=== PATIENT | male | born 1945 | race Caucasian/White ===

== ENCOUNTER 2017-06-12 15:00 | Inpatient (IN) | payer OTHER, MEDICARE ==
[~2017-06-12] VITALS: Ht 175.3 cm; Wt 103.7 kg
[~2017-06-12 15:00] MED LIST: ALBU17I INH; AMLO5 PO; ASPI81TA82 PO; ATOR40TA49 PO; AZIT250T43 PO; CARV12.5 PO; CEFU1TAB43 PO; Z.0.OXYGENDME NC
[2017-06-12 15:02] VITALS: BP 132/60; PULSE 82; RESP 16; TEMP 98; O2SAT 98
[2017-06-12] MEDS ORDERED: PANTOPRAZOLE SODIUM 40 MG VIAL IVP ONE (15:30)
[2017-06-12] MEDS ORDERED: SODIUM CHLOR 0.9% 1000 ML INJ 1,000 ML IV ONE (15:30)
[2017-06-12] MEDS ORDERED: SODIUM CHLORIDE 0.9% FLUSH 10 ML FLUSH IVF PRN (15:30)
--- NOTE | 2017-06-12 15:31 | PD ---
HPI Chief Complaint: Bleeding Time Seen by Provider: 15:29 Travel History International Travel<30 days: No Contact w/Intl Traveler<30days: No Traveled to known affect area: No History of Present Illness HPI 72-year-old male patient with history of hypertension, CHF, presents to the ER today because he states that he had a syncopal episode while on the toilet today. He states that he saw that his bowel movements was consisting of dark blood. He has been lightheaded but denies any chest pains, shortness of breath , fevers, vomiting, abdominal pains, or any other symptoms. He denies being on any blood thinners. He was seen by his physician and told to come in because his initial systolic blood pressure was 80. 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) Cardiac Catheterization: Yes Cardiovascular Problems: Yes High Cholesterol: Yes Chemotherapy: No Chest Pain: No Congestive Heart Failure: Yes COPD: No Cerebrovascular Accident: No Diabetes: No Diminished Hearing: No Endocrine: No Gastrointestinal Disorders: No GERD: No Genitourinary: Yes Headaches: No Hiatal Hernia: No Hypertension: Yes Immune Disorder: No Implanted Vascular Access Dvce: No Kidney Stones: No Musculoskeletal: No Neurologic: No Psychiatric: No Reproductive: No Respiratory: Yes Migraines: No Radiation Therapy: No Renal Failure: No Seizures: No Sickle Cell Disease: No Sleep Apnea: No Thyroid Disease: No Ulcer: No Past Surgical History Abdominal Surgery: No AICD: No Arteriovenous Shunt: No Cardiac Surgery: No Ear Surgery: No Endocrine Surgery: No Eye Surgery: No Genitourinary Surgery: No Gynecologic Surgery: No Insulin Pump: No Joint Replacement: No Neurologic Surgery: No Oral Surgery: No Pacemaker: No Thoracic Surgery: No Other Surgery: Yes (LEFT UPPER EXTREMITY SKIN CA REMOVED) Social History Alcohol Use: Yes (OCCASIONAL) Tobacco Use: No (QUIT IN MAY ) Substance Use: No Allergies-Medications (Allergen,Severity, Reaction): Coded Allergies: No Known Allergies (Unverified , 06/12/17) Reported Meds & Prescriptions Reported Meds & Active Scripts Active Reported Sodium Bicarbonate 650 Mg Tab 650 Mg PO BIDPC Furosemide 40 Mg Tab 40 Mg PO DAILY PRN Dicyclomine (Dicyclomine HCl) 10 Mg Cap 20 Mg PO TID PRN Carvedilol 12.5 Mg Tab 12.5 Mg PO BID Atorvastatin (Atorvastatin Calcium) 40 Mg Tab 40 Mg PO HS Aspirin 81 Mg Chew 81 Mg CHEW DAILY Amlodipine (Amlodipine Besylate) 10 Mg Tab 10 Mg PO DAILY Review of Systems Except as stated in HPI: all other systems reviewed are Neg Physical Exam Narrative GENERAL: Well-developed elderly white male patient currently in mild distress. Awake and oriented 3. SKIN: Focused skin assessment warm/dry. HEAD: Atraumatic. Normocephalic. EYES: Pupils equal and round. No scleral icterus. No injection or drainage. Pale conjunctiva. ENT: No nasal bleeding or discharge. Mucous membranes pink and moist. NECK: Trachea midline. No JVD. CARDIOVASCULAR: Regular rate and rhythm. No murmur appreciated. RESPIRATORY: No accessory muscle use. Clear to auscultation. Breath sounds equal bilaterally. GASTROINTESTINAL: Abdomen soft, non-tender, nondistended. Hepatic and splenic margins not palpable. RECTAL EXAM: No masses or tenderness, stool is dark maroon, Hemoccult-positive. MUSCULOSKELETAL: No obvious deformities. No clubbing. No cyanosis. No edema. NEUROLOGICAL: Awake and alert. No obvious cranial nerve deficits. Motor grossly within normal limits. Normal speech. PSYCHIATRIC: Appropriate mood and affect; insight and judgment normal. Data Data Last Documented VS Vital Signs Date Time Temp Pulse Resp B/P (MAP) Pulse Ox O2 Delivery O2 Flow Rate FiO2 06/12/17 16:08 75 18 135/70 (91) 97 Room Air 06/12/17 15:02 98.0 Orders Orders Complete Blood Count With Diff (06/12/17 15:23) Comprehensive Metabolic Panel (06/12/17 15:23) Lipase (06/12/17 15:23) Prothrombin Time / Inr (Pt) (06/12/17 15:23) Act Partial Throm Time (Ptt) (06/12/17 15:23) Type And Screen (06/12/17 15:23) Ecg Monitoring (06/12/17 15:23) Iv Access Insert/Monitor (06/12/17 15:23) Oximetry (06/12/17 15:23) Pantoprazole Inj (Protonix Inj) (06/12/17 15:30) Sodium Chloride 0.9% Flush (Ns Flush) (06/12/17 15:30) Sodium Chlor 0.9% 1000 Ml Inj (Ns 1000 M (06/12/17 15:30) Sodium Chlorid 0.9% 500 Ml Inj (Ns 500 M (06/12/17 15:45) Admit Order (Ed Use Only) (06/12/17 16:30) Labs Laboratory Tests Test 06/12/17 14:31 White Blood Count 11.4 TH/MM3 Red Blood Count 3.56 MIL/MM3 Hemoglobin 11.2 GM/DL Hematocrit 33.3 % Mean Corpuscular Volume 93.3 FL Mean Corpuscular Hemoglobin 31.4 PG Mean Corpuscular Hemoglobin Concent 33.6 % Red Cell Distribution Width 13.0 % Platelet Count 258 TH/MM3 Mean Platelet Volume 8.3 FL Neutrophils (%) (Auto) 72.2 % Lymphocytes (%) (Auto) 21.5 % Monocytes (%) (Auto) 5.9 % Eosinophils (%) (Auto) 0.2 % Basophils (%) (Auto) 0.2 % Neutrophils # (Auto) 8.2 TH/MM3 Lymphocytes # (Auto) 2.4 TH/MM3 Monocytes # (Auto) 0.7 TH/MM3 Eosinophils # (Auto) 0.0 TH/MM3 Basophils # (Auto) 0.0 TH/MM3 CBC Comment DIFF FINAL Differential Comment Prothrombin Time 11.3 SEC Prothromb Time International Ratio 1.0 RATIO Activated Partial Thromboplast Time 22.9 SEC Blood Urea Nitrogen 71 MG/DL Creatinine 1.92 MG/DL Random Glucose 120 MG/DL Total Protein 6.9 GM/DL Albumin 3.5 GM/DL Calcium Level 9.4 MG/DL Alkaline Phosphatase 101 U/L Aspartate Amino Transf (AST/SGOT) 11 U/L Alanine Aminotransferase (ALT/SGPT) 19 U/L Total Bilirubin 0.5 MG/DL Sodium Level 136 MEQ/L Potassium Level 4.6 MEQ/L Chloride Level 107 MEQ/L Carbon Dioxide Level 19.1 MEQ/L Anion Gap 10 MEQ/L Estimat Glomerular Filtration Rate 35 ML/MIN Lipase 146 U/L MDM Medical Decision Making Medical Screen Exam Complete: Yes Emergency Medical Condition: Yes Medical Record Reviewed: Yes Interpretation(s) EKG shows sinus rhythm at a rate of 76 bpm with a left bundle branch block pattern. No signs of acute ST-T changes. Laboratory Tests Test 06/12/17 14:31 White Blood Count 11.4 TH/MM3 (4.0-11.0) Red Blood Count 3.56 MIL/MM3 (4.50-5.90) Hemoglobin 11.2 GM/DL (13.0-17.0) Hematocrit 33.3 % (39.0-51.0) Neutrophils (%) (Auto) 72.2 % (16.0-70.0) Neutrophils # (Auto) 8.2 TH/MM3 (1.8-7.7) Activated Partial Thromboplast Time 22.9 SEC (24.3-30.1) Blood Urea Nitrogen 71 MG/DL (7-18) Creatinine 1.92 MG/DL (0.60-1.30) Random Glucose 120 MG/DL (74-106) Aspartate Amino Transf (AST/SGOT) 11 U/L (15-37) Carbon Dioxide Level 19.1 MEQ/L (21.0-32.0) Estimat Glomerular Filtration Rate 35 ML/MIN (>89) Differential Diagnosis GI bleed/syncope: Evaluate for anemia versus metabolic issues versus sepsis versus dysrhythmias Narrative Course Patient was given IV fluids in the ER. H&H appears to be stable and vital signs are stable in the ER. He has melena with Hemoccult positive stools. At this point, patient was given Protonix and my plan would be to admit the patient for further GI workup. Case is discussed with Dr. De La Torre for admission. HemaPrompt Point of Care Internal Pos. & Neg. Controls: Passed Fecal Specimen Occult Blood: Positive Diagnosis Primary Impression: Syncope Additional Impression: GI bleed Admitting Information Admitting Physician Requests: it Mary Arizmendi MD Jun 12, 2017 15:31
[2017-06-12] MEDS ORDERED: ATOR40TA16 PO (15:34)
[2017-06-12] MEDS ORDERED: CARV12.52 PO (15:34)
[2017-06-12] MEDS ORDERED: AMLO10TA2 PO (15:34)
[2017-06-12] MEDS ORDERED: ASPI81CH CHEW (15:34)
[2017-06-12] MEDS ORDERED: DICY10CA12 PO (15:39)
[2017-06-12] MEDS ORDERED: FURO40TA PO (15:39)
[2017-06-12] MEDS ORDERED: SODI650T PO (15:39)
[2017-06-12] MEDS ORDERED: SODIUM CHLORID 0.9% 500 ML INJ 500 ML IV ONE (15:45)
[2017-06-12 15:46] VITALS: O2SAT 98
[2017-06-12 15:56] LABS: AUTOMATED NEUTROPHIL # 8.2 TH/MM3 (1.8-7.7); BASOPHIL % 0.2 % (0.0-2.0); EOSINOPHIL % 0.2 % (0.0-4.0); HEMATOCRIT 33.3 % (39.0-51.0); HEMO FLAGS DIFF FINAL; LYMPH % 21.5 % (9.0-44.0); LYMPHOCYTE # 2.4 TH/MM3 (1.0-4.8); MEAN CELL VOLUME 93.3 FL (80.0-100.0); MEAN CORPUSCULAR HEMOGLOBIN 31.4 PG (27.0-34.0); MEAN CORPUSCULAR HGB CONC 33.6 % (32.0-36.0); MONO % 5.9 % (0.0-8.0); NEUT % 72.2 % (16.0-70.0); PLATELET COUNT 258 TH/MM3 (150-450); RED BLOOD COUNT 3.56 MIL/MM3 (4.50-5.90); WHITE BLOOD COUNT 11.4 TH/MM3 (4.0-11.0)
[2017-06-12 16:08] VITALS: BP 135/70; PULSE 75; RESP 18; O2SAT 97
[2017-06-12 16:20] LABS: ANION GAP 10 MEQ/L (5-15); AST (GOT) 11 U/L (15-37); BICARBONATE 19.1 MEQ/L (21.0-32.0); BLOOD UREA NITROGEN 71 MG/DL (7-18); CHLORIDE 107 MEQ/L (98-107); GLOMERULAR FILTRATION RATE 35 ML/MIN (>89); POTASSIUM 4.6 MEQ/L (3.5-5.1); SODIUM (NA) 136 MEQ/L (136-145)
[2017-06-12 16:22] LABS: ALT (GPT) 19 U/L (12-78)
[2017-06-12 16:24] LABS: ALKALINE PHOSPHATASE 101 U/L (45-117); APTT (PATIENT) 22.9 SEC (24.3-30.1); PROTHROMBIN TIME - PATIENT 11.3 SEC (9.8-11.6); TOTAL BILIRUBIN ADULT 0.5 MG/DL (0.2-1.0)
[2017-06-12] MEDS ORDERED: SENNOSIDES 8.6 MG TAB PO PRN (16:45)
[2017-06-12] MEDS ORDERED: LACTULOSE SYRUP 20 GM/30 ML CUP PO PRN (16:45)
[2017-06-12] MEDS ORDERED: SODIUM CHLORIDE 0.9% FLUSH 10 ML FLUSH IV FLUSH PRN (16:45)
[2017-06-12] MEDS ORDERED: NALOXONE HCL 0.4 MG/ML AMP IV PUSH PRN (16:45)
[2017-06-12] MEDS: PANTOPRAZOLE SODIUM 40 MG VIAL IV PUSH SCH (16:45)
[2017-06-12] MEDS ORDERED: ACETAMINOPHEN 325 MG TAB PO PRN (16:45)
[2017-06-12] MEDS ORDERED: BISACODYL 10 MG SUPP RECTAL PRN (16:45)
[2017-06-12] MEDS ORDERED: MAGNESIUM HYDROXIDE SUSP 30 ML CUP PO PRN (16:45)
--- NOTE | 2017-06-12 16:53 | HHI.HP ---
[facility] Admission Diagnosis GI bleed/syncope Diagnoses: Chief Complaint: Syncope, rectal bleeding Travel History International Travel<30 Days: No Contact w/Intl Traveler <30 Da: No Traveled to Known Affected Are: No History of Present Illness Written by Slim Julian, acting as scribe for Dr. De La Torre on 06/12/17 at 16:52. 72-year-old male with a past mental history of HTN, HLD, CKD, CAD who was sent by his PCP after a syncopal episode and rectal bleeding. The patient woke up this morning around 4 AM with sweating and nausea. He went to the bathroom, lost consciousness for an unknown period of time, and woke up on the floor. He had some dried blood on his nose. He states that he was still having some sweating and clamminess, but went back to bed. He woke up around 7 AM and still felt pretty dizzy. He went to the bathroom, had an episode of diarrhea, and noticed the toilet water was full of dark blood. He denies any prior episodes like this in the past. He's never had a colonoscopy. He called his PCP who is able to get him in for an appointment today. He felt quite lightheaded especially with ambulation on the way to see his PCP. When he got there they found that his systolic blood pressure was in the 80s and he was recommended to go to the ED. He did take his blood pressure medications this morning. His blood pressure did well respond to fluids in the ED. Lightheadedness seems to have improved now that his blood pressure is better. He was found to be Hemoccult positive in the ED. 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 Neck surgery for bulging disc Reported Medications Reported Meds & Active Scripts Active Reported Sodium Bicarbonate 650 Mg Tab 650 Mg PO BIDPC Furosemide 40 Mg Tab 40 Mg PO DAILY PRN Dicyclomine (Dicyclomine HCl) 10 Mg Cap 20 Mg PO TID PRN Carvedilol 12.5 Mg Tab 12.5 Mg PO BID Atorvastatin (Atorvastatin Calcium) 40 Mg Tab 40 Mg PO HS Aspirin 81 Mg Chew 81 Mg CHEW DAILY Amlodipine (Amlodipine Besylate) 10 Mg Tab 10 Mg PO DAILY Allergies: Coded Allergies: No Known Allergies (Unverified , 06/12/17) Active Ordered Medications Current Medications Medications (Trade) Dose Ordered Sig/Dorothy Route Start Time Stop Time Status Last Admin (NS Flush) 2 ml UNSCH PRN IVF 06/12/17 15:30 Sodium Chloride 1,000 ml @ 100 mls/hr Q10H IV 06/12/17 16:31 (NS Flush) 2 ml UNSCH PRN IV FLUSH 06/12/17 16:45 (NS Flush) 2 ml BID IV FLUSH 06/12/17 21:00 (Tylenol) 650 mg Q4H PRN PO 06/12/17 16:45 (Narcan Inj) 0.4 mg UNSCH PRN IV PUSH 06/12/17 16:45 UNV (Eliza-Colace) 1 tab BID PO 06/12/17 21:00 UNV (Milk Of Magnesia Liq) 30 ml Q12H PRN PO 06/12/17 16:45 UNV (Senokot) 17.2 mg Q12H PRN PO 06/12/17 16:45 UNV (Dulcolax Supp) 10 mg DAILY PRN RECTAL 06/12/17 16:45 UNV (Lactulose Liq) 30 ml DAILY PRN PO 06/12/17 16:45 UNV (Protonix Inj) 40 mg Q12H IV PUSH 06/12/17 16:45 UNV Family History Mother of hepatitis Father from perforated stomach ulcer at age 72 Social History Quit smoking 2 years ago Rare social alcohol use Denies drug use Physical Exam Vital Signs Vital Signs Date Time Temp Pulse Resp B/P (MAP) Pulse Ox O2 Delivery O2 Flow Rate FiO2 06/12/17 16:08 75 18 135/70 (91) 97 Room Air 06/12/17 15:46 98 Room Air 06/12/17 15:31 97 Room Air 06/12/17 15:02 98.0 82 16 132/60 (84) 98 Room Air Physical Exam GENERAL: Well-developed well-nourished. In no acute distress. SKIN: Warm and dry. Well-healed previous skin graft scar on left arm. HEENT: Normocephalic. Pupils equal and round. Mucous membranes pink and moist. CARDIOVASCULAR: Regular rate and rhythm. No murmur appreciated. RESPIRATORY: No accessory muscle use. Clear to auscultation. Breath sounds equal bilaterally. GASTROINTESTINAL: Abdomen soft, non-tender, nondistended. Bowel sounds x4. MUSCULOSKELETAL: No obvious deformities. No clubbing or cyanosis. No edema. NEUROLOGICAL: Awake and alert. Cranial nerves II through XII intact. Motor and sensory grossly within normal limits. 5/5 muscle strength in all muscle groups. Normal speech. PSYCHIATRIC: Appropriate mood and affect; insight and judgment normal. Laboratory Laboratory Tests Test 06/12/17 14:31 White Blood Count 11.4 Red Blood Count 3.56 Hemoglobin 11.2 Hematocrit 33.3 Mean Corpuscular Volume 93.3 Mean Corpuscular Hemoglobin 31.4 Mean Corpuscular Hemoglobin Concent 33.6 Red Cell Distribution Width 13.0 Platelet Count 258 Mean Platelet Volume 8.3 Neutrophils (%) (Auto) 72.2 Lymphocytes (%) (Auto) 21.5 Monocytes (%) (Auto) 5.9 Eosinophils (%) (Auto) 0.2 Basophils (%) (Auto) 0.2 Neutrophils # (Auto) 8.2 Lymphocytes # (Auto) 2.4 Monocytes # (Auto) 0.7 Eosinophils # (Auto) 0.0 Basophils # (Auto) 0.0 CBC Comment DIFF FINAL Differential Comment Prothrombin Time 11.3 Prothromb Time International Ratio 1.0 Activated Partial Thromboplast Time 22.9 Blood Urea Nitrogen 71 Creatinine 1.92 Random Glucose 120 Total Protein 6.9 Albumin 3.5 Calcium Level 9.4 Alkaline Phosphatase 101 Aspartate Amino Transf (AST/SGOT) 11 Alanine Aminotransferase (ALT/SGPT) 19 Total Bilirubin 0.5 Sodium Level 136 Potassium Level 4.6 Chloride Level 107 Carbon Dioxide Level 19.1 Anion Gap 10 Estimat Glomerular Filtration Rate 35 Lipase 146 Result Diagram: 06/12/17 1431 06/12/17 1431 Caprini VTE Risk Assessment Caprini VTE Risk Assessment: Mod/High Risk (score >= 2) VTE Pharm Contraindication: Active bleeding Caprini Risk Assessment Model Point Value = 1 Point Value = 2 Point Value = 3 Point Value = 5 Age 41-60 Minor surgery BMI > 25 kg/m2 Swollen legs Varicose veins or History of unexplained or recurrent spontaneous Oral contraceptives or hormone replacement Sepsis (< 1 month) Serious lung disease, including pneumonia (< 1 month) Abnormal pulmonary function Acute myocardial infarction Congestive heart failure (< 1 month) History of inflammatory bowel disease Medical patient at bed rest Age 61-74 Arthroscopic surgery Major open surgery (> 45 min) Laparoscopic surgery (> 45 min) Malignancy Confined to bed (> 72 hours) Immobilizing plaster cast Central venous access Age >= 75 History of VTE Family history of VTE Factor V Leiden Prothrombin [id number] Lupus anticoagulant Anticardiolipin antibodies Elevated serum homocysteine Heparin-induced thrombocytopenia Other congenital or acquired thrombophilia Stroke (< 1 month) Elective arthroplasty Hip, pelvis, or leg fracture Acute spinal cord injury (< 1 month) Prophylaxis Regimen Total Risk Factor Score Risk Level Prophylaxis Regimen 0-1 Low Early ambulation 2 Moderate Order ONE of the following: *Sequential Compression Device (SCD) *Heparin 5000 units SQ BID 3-4 Higher Order ONE of the following medications: *Heparin 5000 units SQ TID *Enoxaparin/Lovenox 40 mg SQ daily (WT < 150 kg, CrCl > 30 mL/min) *Enoxaparin/Lovenox 30 mg SQ daily (WT < 150 kg, CrCl > 10-29 mL/min) *Enoxaparin/Lovenox 30 mg SQ BID (WT < 150 kg, CrCl > 30 mL/min) AND/OR *Sequential Compression Device (SCD) 5 or more Highest Order ONE of the following medications: *Heparin 5000 units SQ TID (Preferred with Epidurals) *Enoxaparin/Lovenox 40 mg SQ daily (WT < 150 kg, CrCl > 30 mL/min) *Enoxaparin/Lovenox 30 mg SQ daily (WT < 150 kg, CrCl > 10-29 mL/min) *Enoxaparin/Lovenox 30 mg SQ BID (WT < 150 kg, CrCl > 30 mL/min) AND *Sequential Compression Device (SCD) Assessment and Plan Assessment and Plan 72-year-old male with a past mental history of HTN, HLD, CKD, CAD who was sent by his PCP after a syncopal episode and rectal bleeding Syncope: Patient with lightheadedness and dizziness worse with position changes associated with low blood pressure and hypovolemia from bleeding and diarrhea. Symptoms seem to be improving with improvement in BP after fluids. -Hold home blood pressure medications at this time and check orthostatic blood pressures -Check EKG and monitor on telemetry -IVF GI bleeding: Episode of rectal bleeding 1. Hemoglobin 11.2, previously 10.8 on 04/09/16. Currently stable. -Monitor H&H and transfuse if indicated -Consult gastroenterology -IV PPI twice daily DELISA on Chronic kidney disease stage III: Creatinine 1.92, previously 1.64 on . Bicarbonate level is decreased on home bicarbonate replacement. -IVF and follow-up BMP -Continue home bicarbonate replacement History of CAD: -Hold aspirin with GI bleeding as above -Hold carvedilol and amlodipine with hypotension as above -Continue statin DVT prophylaxis: SCDs. Chemical prophylaxis contraindicated with bleeding. This note was transcribed by MUNA Eason . I, Dr. Paz De La Torre personally performed the history, physical exam, and medical decision making; and confirmed the accuracy of the information in the transcribed note. Authenticated by Dr. Paz De La Torre on 06/12/17 at 16:52. Discussed Condition With Patient, ED staff Slim Julian Jun 12, 2017 16:53 Paz De La Torre MD Jun 12, 2017 18:44
[2017-06-12 17:05] VITALS: BP 156/73; PULSE 68; RESP 19; O2SAT 97
[2017-06-12] MEDS: SODIUM CHLOR 0.9% 1000 ML INJ 1,000 ML IV SCH (17:19)
[2017-06-12 18:00] VITALS: BP 161/69; PULSE 85; RESP 20; TEMP 97.6; O2SAT 97
[2017-06-12] MEDS: SODIUM BICARBONATE 650 MG TAB PO SCH (18:00)
[2017-06-12 20:00] VITALS: BP 164/70; PULSE 78; RESP 20; TEMP 98.6; O2SAT 98
[2017-06-12] MEDS ORDERED: PEG (High)/E-LYTE SOLN 4000 ML BTL PO ONE (20:00)
[2017-06-12] MEDS: SODIUM CHLORIDE 0.9% FLUSH 10 ML FLUSH IV FLUSH SCH (21:19)
[2017-06-12] MEDS: DOCUSATE SODIUM 50 MG/SENNA 8.6 MG TAB PO SCH (21:20)
[2017-06-12] MEDS: ATORVASTATIN 40 MG TAB PO SCH (21:20)
[2017-06-12 21:54] LABS: HEMATOCRIT 27.5 % (39.0-51.0); REVIEW FLAG FINAL
[2017-06-13] VITALS (8 sets, daily range): BP systolic 140–184; BP diastolic 66–84; PULSE 76–95; RESP 18–20; TEMP 97.5–98.4; O2SAT 90–99
[2017-06-13] MEDS: PANTOPRAZOLE SODIUM 40 MG VIAL IV PUSH SCH ×2 (04:19→17:35)
[2017-06-13] MEDS: SODIUM CHLOR 0.9% 1000 ML INJ 1,000 ML IV SCH ×2 (04:19→17:35)
[2017-06-13] MEDS ORDERED: LACTATED RINGER'S 1000 ML IV PRN (05:15)
[2017-06-13] MEDS ORDERED: SODIUM CHLORID 0.9% 500 ML IV PRN (05:15)
[2017-06-13] MEDS ORDERED: POVIDONE IODINE 5% (ANTISEPSIS KIT) 4 APPLICATIONS EACH NARE PRN (05:15)
[2017-06-13] MEDS ORDERED: METOPROLOL TARTRATE 25 MG TAB PO PRN (05:15)
[2017-06-13] MEDS ORDERED: CHLORHEXIDINE GLUCONATE 2 % 1 PACK (2 CLOTHS) TOPICAL PRN (05:15)
[2017-06-13] MEDS ORDERED: INSULIN HUMAN REGULAR 1,000 UNITS/10 ML VIAL SQ PRN (05:15)
[2017-06-13 05:52] LABS: AUTOMATED NEUTROPHIL # 6.3 TH/MM3 (1.8-7.7); BASOPHIL % 0.4 % (0.0-2.0); EOSINOPHIL # 0.4 TH/MM3 (0-0.4); EOSINOPHIL % 4.1 % (0.0-4.0); HEMATOCRIT 25.9 % (39.0-51.0); HEMO FLAGS DIFF FINAL; LYMPH % 27.9 % (9.0-44.0); LYMPHOCYTE # 2.9 TH/MM3 (1.0-4.8); MEAN CELL VOLUME 94.2 FL (80.0-100.0); MEAN CORPUSCULAR HEMOGLOBIN 32.7 PG (27.0-34.0); MEAN CORPUSCULAR HGB CONC 34.7 % (32.0-36.0); MONO % 6.2 % (0.0-8.0); NEUT % 61.4 % (16.0-70.0); PLATELET COUNT 195 TH/MM3 (150-450); RED BLOOD COUNT 2.75 MIL/MM3 (4.50-5.90); RED CELL DISTRIBUTION WIDTH 12.9 % (11.6-17.2); WHITE BLOOD COUNT 10.4 TH/MM3 (4.0-11.0)
[2017-06-13 06:21] LABS: BICARBONATE 21.8 MEQ/L (21.0-32.0); POTASSIUM 4.3 MEQ/L (3.5-5.1)
--- NOTE | 2017-06-13 08:58 | HHI.GIFU ---
Subjective Remarks Pt underwent EGD with biopsy and colonoscopy with polypectomy for massive GI bleed with syncope. EGD showed gastritis, two prepyloric ulcers with clean bases and duodenitis. Also irregular Z line at GE [place]unction, biopsies taken from antrum and GE junction. Colonoscopy showed only a diminutive polyp in transverse colon removed with cold biopsy. Pt tolerated well. Objective Vitals I&O Vital Signs Date Time Temp Pulse Resp B/P (MAP) Pulse Ox O2 Delivery O2 Flow Rate FiO2 06/13/17 04:00 98.4 77 20 146/66 (92) 95 06/13/17 00:02 97.5 76 18 164/74 (104) 97 06/12/17 20:00 98.6 78 20 164/70 (101) 98 06/12/17 18:00 97.6 85 20 161/69 (99) 97 06/12/17 18:00 06/12/17 17:05 68 19 156/73 (100) 97 Room Air 06/12/17 16:08 75 18 135/70 (91) 97 Room Air 06/12/17 15:46 98 Room Air 06/12/17 15:31 97 Room Air 06/12/17 15:02 98.0 82 16 132/60 (84) 98 Room Air I/O 06/12/17 06/12/17 06/12/17 06/13/17 06/13/17 06/13/17 07:00 15:00 23:00 07:00 15:00 23:00 Intake Total 500 ml 1000 ml Balance 500 ml 1000 ml Intake IV Total 500 ml 1000 ml # Voids 5 Laboratory Laboratory Tests Test 06/12/17 14:31 06/12/17 21:14 06/13/17 05:32 White Blood Count 11.4 10.4 Red Blood Count 3.56 2.75 Hemoglobin 11.2 9.3 9.0 Hematocrit 33.3 27.5 25.9 Mean Corpuscular Volume 93.3 94.2 Mean Corpuscular Hemoglobin 31.4 32.7 Mean Corpuscular Hemoglobin Concent 33.6 34.7 Red Cell Distribution Width 13.0 12.9 Platelet Count 258 195 Mean Platelet Volume 8.3 8.5 Neutrophils (%) (Auto) 72.2 61.4 Lymphocytes (%) (Auto) 21.5 27.9 Monocytes (%) (Auto) 5.9 6.2 Eosinophils (%) (Auto) 0.2 4.1 Basophils (%) (Auto) 0.2 0.4 Neutrophils # (Auto) 8.2 6.3 Lymphocytes # (Auto) 2.4 2.9 Monocytes # (Auto) 0.7 0.6 Eosinophils # (Auto) 0.0 0.4 Basophils # (Auto) 0.0 0.0 CBC Comment DIFF FINAL DIFF FINAL Differential Comment Prothrombin Time 11.3 Prothromb Time International Ratio 1.0 Activated Partial Thromboplast Time 22.9 Blood Urea Nitrogen 71 57 Creatinine 1.92 1.64 Random Glucose 120 92 Total Protein 6.9 Albumin 3.5 Calcium Level 9.4 7.9 Alkaline Phosphatase 101 Aspartate Amino Transf (AST/SGOT) 11 Alanine Aminotransferase (ALT/SGPT) 19 Total Bilirubin 0.5 Sodium Level 136 140 Potassium Level 4.6 4.3 Chloride Level 107 110 Carbon Dioxide Level 19.1 21.8 Anion Gap 10 8 Estimat Glomerular Filtration Rate 35 42 Lipase 146 Physical Exam HEENT: Pupils round and reactive to light; normocephalic; atraumatic; no jaundice. Throat is clear. NECK: Neck is supple, no JVD, no lymphadenopathy. CHEST: Chest is clear to auscultation and percussion. CARDIAC: Regular rate and rhythm with no murmur gallop or rubs. ABDOMEN: Soft, nondistended, nontender; no hepatosplenomegaly; bowel sounds are present in all four quadrants. EXTREMITIES: No clubbing, cyanosis, or edema. SKIN: Normal; no rash; no jaundice. HABILITATIVE INTERVENTIONIST: No focal deficits; alert and oriented times three. Assessment and Plan Plan Imp: Massive upper GI bleed from prepyloric ulcers. Now with clean bases. Barretts esophagus Gastritis, duodenitis rule out H Pylori. Colon polyp. Rec: Clear liquid diet. Protonix 40mg PO BID Await biopsy result. Marcus Dodson MD Jun 13, 2017 08:58
[2017-06-13] MEDS ORDERED: DO NOT ADM ANY ANTICOAGULANT DRUGS PRN (09:00)
[2017-06-13] MEDS: SODIUM CHLORIDE 0.9% FLUSH 10 ML FLUSH IV FLUSH SCH ×2 (09:00→20:56)
[2017-06-13] MEDS: DOCUSATE SODIUM 50 MG/SENNA 8.6 MG TAB PO SCH ×2 (09:00→20:56)
[2017-06-13] MEDS ORDERED: PNEUMOCOCCAL POLYVALENT INJ 25 MCG/0.5 ML SYR IM ONE (10:00)
--- NOTE | 2017-06-13 10:47 | MB ---
cc: MARCUS DODSON JR., MD DATE OF CONSULTATION: 06/13/2017 REASON FOR CONSULTATION GI bleed. HISTORY OF PRESENT ILLNESS Mr. Arana is a 72-year-old male who awoke yesterday morning and felt weak and dizzy. He had a syncopal episode after going to the toilet and moving his bowels, having loose stool. He went back to bed and then awoke again to move his bowels. This time he noticed that his stool was bloody. He then came to see his doctor who sent him over to the hospital. He was admitted and found to have blood in his stool. His hematocrit on admission was 33%. It declined to 25% overnight. He was prepped for an EGD and colonoscopy. He reports no abdominal pain, no hematemesis or vomiting. However, he has felt nauseous during the early stages of his episode. Currently he is feeling fine. He has never had EGD or colonoscopy in the past. He has never noticed any blood in his stool before. He does not have difficulty with his bowels. PAST MEDICAL HISTORY Past medical history is negative for any abdominal surgery. He does not have any diabetes or heart disease. He is not taking any blood thinners. FAMILY HISTORY Family history is negative for colon cancer, stomach cancer. REVIEW OF SYSTEMS Review of systems is negative for headache, earache, sore throat, no chest pain, no shortness of breath, otherwise complete review of systems is negative. PHYSICAL EXAMINATION GENERAL: He is a well-appearing white male, in no apparent distress. He is alert and oriented x3. Mood is normal and appropriate. HEENT: Mucous membranes are moist. RESPIRATORY: Respirations are clear and his breathing is unlabored. HEART: Heart sounds are normal. ABDOMEN: Abdomen is soft and nontender. EXTREMITIES: Without cyanosis, clubbing or edema. NEUROLOGIC: Exam was grossly normal. LABORATORY DATA White blood cell count 10.4, hematocrit 25.9, MCV 94.2, platelet count 195,000. Protime INR is 1.0. Chemistries show AST 11, ALT 19, total bilirubin 0.5, BUN is 57, creatinine 1.64, down from 71 and 1.92 yesterday in the afternoon. IMPRESSION Massive GI bleed, uncertain whether upper or lower. PLAN 1. EGD and colonoscopy will be performed. 2. The patient should be on proton pump inhibitor. 3. Further recommendations once the EGD and colonoscopy have been completed. Marcus Dodson MD [facility] /10:19 AM /10:32 AM
[2017-06-13] MEDS: SODIUM BICARBONATE 650 MG TAB PO SCH ×2 (12:44→17:35)
--- NOTE | 2017-06-13 13:29 | HHI.PR ---
Subjective Remarks Written by Roselia Marrero, acting as scribe for Dr. Villasenor on 06/13/17 at 13: 29. Follow-up visit syncope, GI bleed. Patient seen and examined today. Laying in bed. States he is doing a lot better. Denies pain and discomfort. Denies SOB / dyspnea. Denies chest pain, palpitations, headaches, dizziness. Denies fevers , chills, n/v/d. Denies hematuria, dysuria. Objective Vitals Vital Signs Date Time Temp Pulse Resp B/P (MAP) Pulse Ox O2 Delivery O2 Flow Rate FiO2 06/13/17 09:45 97.6 86 16 121/57 (78) 96 Nasal Cannula 2 06/13/17 09:30 82 16 120/59 (79) 95 Nasal Cannula 2 06/13/17 09:15 80 17 118/63 (81) 96 Nasal Cannula 3 06/13/17 09:00 98.0 79 26 120/76 (91) 95 Nasal Cannula 3 06/13/17 08:00 97.6 84 20 155/72 (99) 99 06/13/17 04:00 98.4 77 20 146/66 (92) 95 06/13/17 00:02 97.5 76 18 164/74 (104) 97 06/12/17 20:00 98.6 78 20 164/70 (101) 98 06/12/17 18:00 97.6 85 20 161/69 (99) 97 06/12/17 18:00 06/12/17 17:05 68 19 156/73 (100) 97 Room Air 06/12/17 16:08 75 18 135/70 (91) 97 Room Air 06/12/17 15:46 98 Room Air 06/12/17 15:31 97 Room Air 06/12/17 15:02 98.0 82 16 132/60 (84) 98 Room Air I/O 06/12/17 06/12/17 06/12/17 06/13/17 06/13/17 06/13/17 07:00 15:00 23:00 07:00 15:00 23:00 Intake Total 500 ml 1000 ml Balance 500 ml 1000 ml Intake IV Total 500 ml 1000 ml # Voids 5 Result Diagram: 06/13/17 0532 06/13/1732 Objective Remarks GENERAL: This is a well-nourished, well-developed patient, in no apparent distress. SKIN: Warm and dry. HEENT: Normocephalic. Pupils equal round and reactive. Nose without bleeding. Airway patent. NECK: Trachea midline. No JVD. Supple. CARDIOVASCULAR: Regular rate and rhythm without murmurs, gallops, or rubs. RESPIRATORY: Clear to auscultation. Breath sounds equal bilaterally. No wheezes , rales, or rhonchi. GASTROINTESTINAL: Abdomen soft, non-tender, nondistended. Bowel Sounds normoactive x4. MUSCULOSKELETAL: Extremities without clubbing, cyanosis, or edema. NEUROLOGICAL: Awake and alert. Oriented to time, place, person. No focal neuro deficit. Moves all extremities. Normal speech. Procedures EGD with biopsy and colonoscopy with polypectomy A/P Problem List: (1) GI bleed ICD Code: K92.2 - Gastrointestinal hemorrhage, unspecified Status: Acute (2) Syncope ICD Code: R55 - Syncope and collapse Status: Acute (3) Pneumonia ICD Code: J18.9 - Pneumonia, unspecified organism Status: Acute (4) CKD (chronic kidney disease) ICD Code: N18.9 - Chronic kidney disease, unspecified Status: Chronic (5) HTN (hypertension) ICD Code: I10 - Essential (primary) hypertension Status: Chronic (6) CAD (coronary artery disease) ICD Code: I25.10 - Atherosclerotic heart disease of [place] coronary artery without angina pectoris Status: Chronic Assessment and Plan 72-year-old male with a past mental history of HTN, HLD, CKD, CAD who was sent by his PCP after a syncopal episode and rectal bleeding Syncope: Patient with lightheadedness and dizziness worse with position changes associated with low blood pressure and hypovolemia from bleeding and diarrhea. - Hold home blood pressure medications at this time and check orthostatic blood pressures - EKG SR HR 76 LBBB, no acute ST changes noted - IVF for hydration - Improved. Denies Dizziness BP improved. GI bleeding: Episode of rectal bleeding 1. Hemoglobin 11.2, previously 10.8 on 04/09/16. Currently stable 05/13.9 - Monitor H&H and transfuse if indicated - Gastroenterology following patient. EGD and colonoscopy with polypectomy done. Massive upper GI bleed from prepyloric ulcers. Anne's esophagus, gastritis, duodenitis recommends to rule out H. pylori. Noted: Bipolar. - Protonix 40 mg by mouth twice a day. Pending biopsy. DELISA on Chronic kidney disease stage III: Creatinine 1.92, previously 1.64 on . Bicarbonate level is decreased on home bicarbonate replacement. - IVF and follow-up BMP - Improved , now 1.64 History of CAD: -Hold aspirin with GI bleeding as above -Hold carvedilol and amlodipine, will restart when BP is above 130's -Continue statin DVT prophylaxis: SCDs. Chemical prophylaxis contraindicated with bleeding. Discuss with patient, nursing Discharge Planning Plan to DC home when cleared by GI. This note was transcribed by scribe [ Roselia Marrero, . ]. I, Dr. Sanket Villasenor personally performed the history, physical exam, and medical decision making; and confirmed the accuracy of the information in the transcribed note. Authenticated by Dr. Sanket Villasenor on 06/13/17 at 13:29 Roselia Stroud Jun 13, 2017 13:29 Sanket Villasenor MD Jun 13, 2017 13:33
[2017-06-13] MEDS ORDERED: GLYCOPYRROLATE 1 MG/5 ML SYRINGE IV PUSH ONE (14:39)
[2017-06-13] MEDS ORDERED: PROPOFOL 200 MG/20 ML AMP IV ONE (14:39)
[2017-06-13] MEDS ORDERED: PHENYLEPH/NS 1000 MCG/10 ML SYR IV ONE (14:39)
[2017-06-13] MEDS ORDERED: LIDOCAINE HCL 1% PF 5 ML AMPULE OTHER ONE (14:39)
--- NOTE | 2017-06-13 15:00 | EKG ---
Date Performed: 06/12/2017 Time Performed: 15:55:29 PTAGE: 72 years EKG: Sinus rhythm LEFT BUNDLE BRANCH BLOCK ABNORMAL ECG INTERPRETATION BASED ON A DEFAULT AGE OF 42 YEARS PREVIOUS TRACING : 04/08/2016 21.05 Compared to prior tracing no significant change DOCTOR: Priti Duran Interpretating Date/Time 06/13/2017 14:54:26
[2017-06-13] MEDS: ATORVASTATIN 40 MG TAB PO SCH (20:56)
[2017-06-14] VITALS (7 sets, daily range): BP systolic 153–167; BP diastolic 69–82; PULSE 69–87; RESP 17–20; TEMP 97.7–98.5; O2SAT 92–94
[2017-06-14] MEDS: SODIUM CHLOR 0.9% 1000 ML INJ 1,000 ML IV SCH ×3 (04:42→18:31)
[2017-06-14] MEDS: PANTOPRAZOLE SODIUM 40 MG VIAL IV PUSH SCH (05:21)
[2017-06-14] MEDS: SODIUM CHLORIDE 0.9% FLUSH 10 ML FLUSH IV FLUSH SCH ×2 (08:10→20:18)
[2017-06-14] MEDS: SODIUM BICARBONATE 650 MG TAB PO SCH ×2 (08:10→17:25)
[2017-06-14] MEDS: DOCUSATE SODIUM 50 MG/SENNA 8.6 MG TAB PO SCH ×2 (08:11→20:17)
[2017-06-14 09:28] LABS: AUTOMATED NEUTROPHIL # 4.7 TH/MM3 (1.8-7.7); BASOPHIL % 0.4 % (0.0-2.0); EOSINOPHIL # 0.5 TH/MM3 (0-0.4); EOSINOPHIL % 6.9 % (0.0-4.0); HEMATOCRIT 24.8 % (39.0-51.0); HEMO FLAGS DIFF FINAL; LYMPH % 22.3 % (9.0-44.0); LYMPHOCYTE # 1.6 TH/MM3 (1.0-4.8); MEAN CELL VOLUME 93.9 FL (80.0-100.0); MEAN CORPUSCULAR HEMOGLOBIN 32.6 PG (27.0-34.0); MEAN CORPUSCULAR HGB CONC 34.7 % (32.0-36.0); MONO % 6.4 % (0.0-8.0); PLATELET COUNT 198 TH/MM3 (150-450); RED BLOOD COUNT 2.64 MIL/MM3 (4.50-5.90); RED CELL DISTRIBUTION WIDTH 12.8 % (11.6-17.2); WHITE BLOOD COUNT 7.4 TH/MM3 (4.0-11.0)
--- NOTE | 2017-06-14 12:21 | HHI.GIFU ---
Subjective Remarks Resting in bed. Tolerating diet. No n/v. No abdominal pain. No bleeding. Objective Vitals I&O Vital Signs Date Time Temp Pulse Resp B/P (MAP) Pulse Ox O2 Delivery O2 Flow Rate FiO2 06/14/17 10:15 69 06/14/17 08:00 98.0 81 20 153/74 (100) 92 06/14/17 05:10 97.8 83 18 165/74 (104) 92 06/13/17 23:38 97.7 88 18 143/78 (99) 92 06/13/17 20:35 98.4 93 18 159/74 (102) 90 06/13/17 20:00 95 06/13/17 16:00 97.7 89 20 184/83 (116) 96 I/O 06/13/17 06/13/17 06/13/17 06/14/17 06/14/17 06/14/17 07:00 15:00 23:00 07:00 15:00 23:00 Intake Total 1000 ml 200 ml 0 ml 600 ml Balance 1000 ml 200 ml 0 ml 600 ml Intake Oral 0 ml 600 ml IV Total 1000 ml Other 200 ml # Voids 5 5 8 # Bowel Movements 0 0 Laboratory Laboratory Tests Test 06/14/17 08:43 White Blood Count 7.4 Red Blood Count 2.64 Hemoglobin 8.6 Hematocrit 24.8 Mean Corpuscular Volume 93.9 Mean Corpuscular Hemoglobin 32.6 Mean Corpuscular Hemoglobin Concent 34.7 Red Cell Distribution Width 12.8 Platelet Count 198 Mean Platelet Volume 8.2 Neutrophils (%) (Auto) 64.0 Lymphocytes (%) (Auto) 22.3 Monocytes (%) (Auto) 6.4 Eosinophils (%) (Auto) 6.9 Basophils (%) (Auto) 0.4 Neutrophils # (Auto) 4.7 Lymphocytes # (Auto) 1.6 Monocytes # (Auto) 0.5 Eosinophils # (Auto) 0.5 Basophils # (Auto) 0.0 CBC Comment DIFF FINAL Differential Comment Physical Exam HEENT: Normocephalic; atraumatic; no jaundice. CHEST: CTA CARDIAC: Regular rate and rhythm with no murmur gallop or rubs. ABDOMEN: Soft, nondistended, nontender; no hepatosplenomegaly; bowel sounds are present in all four quadrants. EXTREMITIES: No clubbing, cyanosis, or edema. SKIN: Normal; no rash; no jaundice. 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 Assessment and Plan Plan ASSESSMENT: - GIB. S/P EGD/Colonoscopy (06/13/17)----> Massive upper GI bleed from prepyloric ulcers. Now with clean bases. Barretts esophagus Gastritis, duodenitis rule out H Pylori. Colon polyp. Pathology pending. PPI. HH stable, no active bleeding. Tolerating diet. - Anemia, acute blood loss. 8.6/24.8. PPI. - Prepyloric ulcers, pathology pending. PPI - DELISA, Creat. 1.64. - HTN, CAD, PNA per attending PLAN: - Heart healthy diet - Await pathology - Protonix 40mg po BID - No NSAIDS - FU MARVIN 2 weeks - Pt seen and examined by Dr. Dodson and myself and this note is written on his behalf Antonia Rosenbaum Jun 14, 2017 12:21
--- NOTE | 2017-06-14 16:34 | HHI.PR ---
Subjective Remarks Patient denied chest pain or short of breath hemoglobin 8.6 today, disease follow up on syncope GI bleed DELISA Patient had an EGD and colonoscopy yesterday Objective Vitals Vital Signs Date Time Temp Pulse Resp B/P (MAP) Pulse Ox O2 Delivery O2 Flow Rate FiO2 06/14/17 12:00 98.0 87 20 165/69 (101) 93 06/14/17 10:15 69 06/14/17 08:00 98.0 81 20 153/74 (100) 92 06/14/17 05:10 97.8 83 18 165/74 (104) 92 06/13/17 23:38 97.7 88 18 143/78 (99) 92 06/13/17 20:35 98.4 93 18 159/74 (102) 90 06/13/17 20:00 95 I/O 06/13/17 06/13/17 06/13/17 06/14/17 06/14/17 06/14/17 07:00 15:00 23:00 07:00 15:00 23:00 Intake Total 1000 ml 200 ml 0 ml 600 ml Balance 1000 ml 200 ml 0 ml 600 ml Intake Oral 0 ml 600 ml IV Total 1000 ml Other 200 ml # Voids 5 5 8 # Bowel Movements 0 0 Result Diagram: 06/14/17 0843 06/13/17 0532 Objective Remarks GENERAL: This is a well-nourished, well-developed patient, in no apparent distress. SKIN: Warm and dry. HEENT: Normocephalic. Pupils equal round and reactive. Nose without bleeding. Airway patent. NECK: Trachea midline. No JVD. Supple. CARDIOVASCULAR: Regular rate and rhythm without murmurs, gallops, or rubs. RESPIRATORY: Clear to auscultation. Breath sounds equal bilaterally. No wheezes , rales, or rhonchi. GASTROINTESTINAL: Abdomen soft, non-tender, nondistended. Bowel Sounds normoactive x4. MUSCULOSKELETAL: Extremities without clubbing, cyanosis, or edema. NEUROLOGICAL: Awake and alert. Oriented to time, place, person. No focal neuro deficit. Moves all extremities. Normal speech. Procedures EGD with biopsy and colonoscopy with polypectomy A/P Problem List: (1) GI bleed ICD Code: K92.2 - Gastrointestinal hemorrhage, unspecified Status: Acute (2) Syncope ICD Code: R55 - Syncope and collapse Status: Acute (3) Pneumonia ICD Code: J18.9 - Pneumonia, unspecified organism Status: Acute (4) CKD (chronic kidney disease) ICD Code: N18.9 - Chronic kidney disease, unspecified Status: Chronic (5) HTN (hypertension) ICD Code: I10 - Essential (primary) hypertension Status: Chronic (6) CAD (coronary artery disease) ICD Code: I25.10 - Atherosclerotic heart disease of [place] coronary artery without angina pectoris Status: Chronic Assessment and Plan 72-year-old male with a past mental history of HTN, HLD, CKD, CAD who was sent by his PCP after a syncopal episode and rectal bleeding Syncope: Patient with lightheadedness and dizziness worse with position changes associated with low blood pressure and hypovolemia from bleeding and diarrhea. - Hold home blood pressure medications at this time and check orthostatic blood pressures - EKG SR HR 76 LBBB, no acute ST changes noted - IVF for hydration - Improved. Denies Dizziness BP improved. GI bleeding: Episode of rectal bleeding 1. Hemoglobin 11.2, previously 10.8 on 04/09/16. Currently stable 05/13.9 - Monitor H&H and transfuse if indicated - Gastroenterology following patient. EGD and colonoscopy with polypectomy done. Massive upper GI bleed from prepyloric ulcers. Anne's esophagus, gastritis, duodenitis recommends to rule out H. pylori. Noted: Bipolar. - Protonix 40 mg by mouth twice a day. Pending biopsy. Check H&H in a.m. DELISA on Chronic kidney disease stage III: Creatinine 1.92, improved to 1.36 Bicarbonate level is decreased on home bicarbonate replacement. - IVF and follow-up BMP History of CAD: -Hold aspirin with GI bleeding as above -Hold carvedilol and amlodipine, will restart when BP is above 130's -Continue statin DVT prophylaxis: SCDs. Chemical prophylaxis contraindicated with bleeding. Discuss with patient, nursing Discharge Planning Plan to DC home when cleared by GI. Sanket Villasenor MD Jun 14, 2017 16:34
[2017-06-14] MEDS: ATORVASTATIN 40 MG TAB PO SCH (20:17)
[2017-06-14] MEDS: PANTOPRAZOLE SOD 40 MG DELAYED RELEASE TAB PO SCH (20:18)
[2017-06-15 00:14] VITALS: BP 163/73; PULSE 81; RESP 18; TEMP 98; O2SAT 94
[2017-06-15] MEDS: SODIUM CHLOR 0.9% 1000 ML INJ 1,000 ML IV SCH (04:31)
[2017-06-15 05:16] VITALS: BP 158/72; PULSE 80; RESP 17; TEMP 97.9; O2SAT 95
[2017-06-15 08:00] VITALS: BP 153/72; PULSE 74; RESP 18; TEMP 97.8; O2SAT 93
[2017-06-15] MEDS: SODIUM CHLORIDE 0.9% FLUSH 10 ML FLUSH IV FLUSH SCH (09:00)
[2017-06-15] MEDS: DOCUSATE SODIUM 50 MG/SENNA 8.6 MG TAB PO SCH (09:00)
[2017-06-15] MEDS: PANTOPRAZOLE SOD 40 MG DELAYED RELEASE TAB PO SCH (09:02)
[2017-06-15] MEDS: SODIUM BICARBONATE 650 MG TAB PO SCH (09:02)
[2017-06-15 10:34] VITALS: O2SAT 93
[2017-06-15 10:53] LABS: AUTOMATED NEUTROPHIL # 5.6 TH/MM3 (1.8-7.7); BASOPHIL % 0.3 % (0.0-2.0); EOSINOPHIL # 0.5 TH/MM3 (0-0.4); EOSINOPHIL % 5.8 % (0.0-4.0); HEMATOCRIT 26.2 % (39.0-51.0); HEMO FLAGS DIFF FINAL; LYMPH % 18.5 % (9.0-44.0); LYMPHOCYTE # 1.5 TH/MM3 (1.0-4.8); MEAN CELL VOLUME 93.8 FL (80.0-100.0); MEAN CORPUSCULAR HEMOGLOBIN 33.2 PG (27.0-34.0); MEAN CORPUSCULAR HGB CONC 35.4 % (32.0-36.0); MONO % 6.2 % (0.0-8.0); NEUT % 69.2 % (16.0-70.0); PLATELET COUNT 224 TH/MM3 (150-450); RED BLOOD COUNT 2.79 MIL/MM3 (4.50-5.90)
[2017-06-15 12:00] VITALS: BP 158/74; PULSE 87; RESP 18; TEMP 97.7; O2SAT 98
[2017-06-15 12:02] LABS: BICARBONATE 21.5 MEQ/L (21.0-32.0); POTASSIUM 4.2 MEQ/L (3.5-5.1)
[2017-06-15] MEDS ORDERED: PANT40TA3 PO (12:42)
--- NOTE | 2017-06-15 12:42 | HHI.DCPOC ---
Discharge Care Plan Goals to Promote Your Health * To prevent worsening of your condition and complications take all medications as prescribed * To maintain your health at the optimal level follow-up discharge instructions Directions to Meet Your Goals Take your medications as prescribed Follow your dietary instruction Follow activity as directed Keep your appointments as scheduled Take your immunizations and boosters as scheduled If your symptoms worsen call your PCP, if no PCP go to Urgent Care Center or Emergency Room Smoking is Dangerous to Your Health. Avoid second hand smoke Call the 24-hour hour crisis hotline for domestic abuse at Shabnam Tompkins MD Jun 15, 2017 12:42
--- NOTE | 2017-06-15 12:47 | HHI.DS ---
Discharge Summary Admission Date Jun 12, 2017 at 16:32 Discharge Date: Jun 15, 2017 Admitting Diagnosis GI bleed/syncope (1) GI bleed ICD Code: K92.2 - Gastrointestinal hemorrhage, unspecified Status: Acute (2) Syncope ICD Code: R55 - Syncope and collapse Status: Acute (3) Pneumonia ICD Code: J18.9 - Pneumonia, unspecified organism Status: Acute (4) CKD (chronic kidney disease) ICD Code: N18.9 - Chronic kidney disease, unspecified Status: Chronic (5) HTN (hypertension) ICD Code: I10 - Essential (primary) hypertension Status: Chronic (6) CAD (coronary artery disease) ICD Code: I25.10 - Atherosclerotic heart disease of [place] coronary artery without angina pectoris Status: Chronic Procedures EGD with biopsy and colonoscopy with polypectomy Brief History - From Admission Written by Slim Julian, acting as scribe for Dr. De La Torre on 06/12/17 at 16:52. 72-year-old male with a past mental history of HTN, HLD, CKD, CAD who was sent by his PCP after a syncopal episode and rectal bleeding. The patient woke up this morning around 4 AM with sweating and nausea. He went to the bathroom, lost consciousness for an unknown period of time, and woke up on the floor. He had some dried blood on his nose. He states that he was still having some sweating and clamminess, but went back to bed. He woke up around 7 AM and still felt pretty dizzy. He went to the bathroom, had an episode of diarrhea, and noticed the toilet water was full of dark blood. He denies any prior episodes like this in the past. He's never had a colonoscopy. He called his PCP who is able to get him in for an appointment today. He felt quite lightheaded especially with ambulation on the way to see his PCP. When he got there they found that his systolic blood pressure was in the 80s and he was recommended to go to the ED. He did take his blood pressure medications this morning. His blood pressure did well respond to fluids in the ED. Lightheadedness seems to have improved now that his blood pressure is better. He was found to be Hemoccult positive in the ED. CBC/BMP: 06/15/17 1011 06/15/17 1011 Significant Findings Laboratory Tests Test 06/12/17 14:31 06/12/17 21:14 06/13/17 05:32 06/14/17 08:43 White Blood Count 11.4 TH/MM3 (4.0-11.0) Red Blood Count 3.56 MIL/MM3 (4.50-5.90) 2.75 MIL/MM3 (4.50-5.90) 2.64 MIL/MM3 (4.50-5.90) Hemoglobin 11.2 GM/DL (13.0-17.0) 9.3 GM/DL (13.0-17.0) 9.0 GM/DL (13.0-17.0) 8.6 GM/DL (13.0-17.0) Hematocrit 33.3 % (39.0-51.0) 27.5 % (39.0-51.0) 25.9 % (39.0-51.0) 24.8 % (39.0-51.0) Neutrophils (%) (Auto) 72.2 % (16.0-70.0) Neutrophils # (Auto) 8.2 TH/MM3 (1.8-7.7) Activated Partial Thromboplast Time 22.9 SEC (24.3-30.1) Blood Urea Nitrogen 71 MG/DL (7-18) 57 MG/DL (7-18) Creatinine 1.92 MG/DL (0.60-1.30) 1.64 MG/DL (0.60-1.30) Random Glucose 120 MG/DL (74-106) Aspartate Amino Transf (AST/SGOT) 11 U/L (15-37) Carbon Dioxide Level 19.1 MEQ/L (21.0-32.0) Estimat Glomerular Filtration Rate 35 ML/MIN (>89) 42 ML/MIN (>89) Eosinophils (%) (Auto) 4.1 % (0.0-4.0) 6.9 % (0.0-4.0) Calcium Level 7.9 MG/DL (8.5-10.1) Chloride Level 110 MEQ/L (98-107) Eosinophils # (Auto) 0.5 TH/MM3 (0-0.4) Test 06/15/17 10:11 Red Blood Count 2.79 MIL/MM3 (4.50-5.90) Hemoglobin 9.3 GM/DL (13.0-17.0) Hematocrit 26.2 % (39.0-51.0) Eosinophils (%) (Auto) 5.8 % (0.0-4.0) Eosinophils # (Auto) 0.5 TH/MM3 (0-0.4) Blood Urea Nitrogen 19 MG/DL (7-18) Creatinine 1.59 MG/DL (0.60-1.30) Random Glucose 118 MG/DL (74-106) Chloride Level 109 MEQ/L (98-107) Estimat Glomerular Filtration Rate 43 ML/MIN (>89) PE at Discharge GENERAL: This is a well-nourished, well-developed patient, in no apparent distress. SKIN: Warm and dry. HEENT: Normocephalic. Pupils equal round and reactive. Nose without bleeding. Airway patent. NECK: Trachea midline. No JVD. Supple. CARDIOVASCULAR: Regular rate and rhythm without murmurs, gallops, or rubs. RESPIRATORY: Clear to auscultation. Breath sounds equal bilaterally. No wheezes , rales, or rhonchi. GASTROINTESTINAL: Abdomen soft, non-tender, nondistended. Bowel Sounds normoactive x4. MUSCULOSKELETAL: Extremities without clubbing, cyanosis, or edema. NEUROLOGICAL: Awake and alert. Oriented to time, place, person. No focal neuro deficit. Moves all extremities. Normal speech. Hospital Course Syncope: Patient with lightheadedness and dizziness worse with position changes associated with low blood pressure and hypovolemia from bleeding and diarrhea. - EKG SR HR 76 LBBB, no acute ST changes noted - Resolved with IVF GI bleeding: Episode of rectal bleeding 1. H&H remained stable - EGD and colonoscopy with polypectomy done by Gastroenterology. Massive upper GI bleed from prepyloric ulcers. Anne's esophagus, gastritis, duodenitis recommends to rule out H. pylori. - Protonix 40 mg by mouth twice a day. Pending biopsy. - F/U with GI in 2 weeks DELISA on Chronic kidney disease stage III: Creatinine 1.92, improved to 1.36 Bicarbonate level is decreased on home bicarbonate replacement. - Resolved with IVFs History of CAD: -Hold aspirin with GI bleeding as above -Continue carvedilol and amlodipine -Continue statin Pt Condition on Discharge: Stable Discharge Disposition: Discharge Home Discharge Time: > 30 minutes Discharge Instructions DIET: Follow Instructions for: As Tolerated, No Restrictions Activities you can perform: Regular-No Restrictions Follow up Referrals: Gastroenterology - 2 Weeks @ [facility] New Medications: Pantoprazole (Pantoprazole) 40 Mg Tab 40 MG PO Q12HR for Gastric ulcer, #60 TAB Continued Medications: Amlodipine (Amlodipine) 10 Mg Tab 10 MG PO DAILY for Blood Pressure Management, #30 TAB 0 Refills Atorvastatin (Atorvastatin) 40 Mg Tab 40 MG PO HS for Cholesterol Management, #30 TAB 0 Refills Carvedilol (Carvedilol) 12.5 Mg Tab 12.5 MG PO BID, #60 TAB 0 Refills Dicyclomine (Dicyclomine) 10 Mg Cap 20 MG PO TID PRN for Bowel Management, CAP 0 Refills Furosemide (Furosemide) 40 Mg Tab 40 MG PO DAILY PRN for DIRECTED, #30 TAB 0 Refills Sodium Bicarbonate (Sodium Bicarbonate) 650 Mg Tab 650 MG PO BIDPC, #60 TAB 0 Refills Discontinued Medications: Aspirin (Aspirin) 81 Mg Chew 81 MG CHEW DAILY, TAB 0 Refills Shabnam Tompkins MD Jun 15, 2017 12:47
== END 2017-06-15 15:14 | disposition home or self-care (01) | DRG 378 ==
LOC: NEPC 15:00 → NEDA 16:32 → N04B 18:14
PROVIDERS: ADMIT Family Medicine; ATTEND Family Medicine
PROC: 0DBL8ZX Excision of Transverse Colon, Via Natural or Artificial Opening Endoscopic, Diagnostic (ICD-10-PCS; 2017-06-13)
PROC: 0DB58ZX Excision of Esophagus, Via Natural or Artificial Opening Endoscopic, Diagnostic (ICD-10-PCS; principal; 2017-06-13 08:00)
PROC: 0DB68ZX Excision of Stomach, Via Natural or Artificial Opening Endoscopic, Diagnostic (ICD-10-PCS; 2017-06-13 08:00)
DX: K25.4 Chronic or unspecified gastric ulcer with hemorrhage (principal); N17.9 Acute kidney failure, unspecified; I95.9 Hypotension, unspecified; K92.1 Melena; E86.1 Hypovolemia; N18.3 Chronic kidney disease, stage 3 (moderate); I44.7 Left bundle-branch block, unspecified; K22.70 Barrett's esophagus without dysplasia; D62 Acute posthemorrhagic anemia; I12.9 Hypertensive chronic kidney disease with stage 1 through stage 4 chronic kidney disease, or unspecified chronic kidney disease; E78.5 Hyperlipidemia, unspecified; I25.10 Atherosclerotic heart disease of native coronary artery without angina pectoris; K63.5 Polyp of colon; K29.70 Gastritis, unspecified, without bleeding; K29.80 Duodenitis without bleeding; Z87.891 Personal history of nicotine dependence; Z85.828 Personal history of other malignant neoplasm of skin
CPT/HCPCS: 80048; 80053; 83690; 85014; 85018; 85025; 85610; 85730; 86850; 86900; 86901; 88305; 88312; 93005; 96374; C9113; J2370; J7030; J7040